=== PATIENT | male | born 1995 | race Caucasian/White ===

== ENCOUNTER 2020-12-26 08:32 | Emergency (ER) | payer SELFPAY ==
[~2020-12-26] VITALS: Ht 167.6 cm; Wt 80.0 kg
[2020-12-26 12:01] VITALS: BP 123/78
== END 2020-12-26 12:01 | disposition home or self-care (01) ==
LOC: EDBD 08:32 → ER 08:32
DX: S09.8XXA Other specified injuries of head, initial encounter (principal); H11.32 Conjunctival hemorrhage, left eye; Z59.0 Homelessness; X58.XXXA Exposure to other specified factors, initial encounter; Y93.89 Activity, other specified; Y92.488 Other paved roadways as the place of occurrence of the external cause
CPT/HCPCS: 99284